=== PATIENT | female | born 1970 | race Two or more races ===

== ENCOUNTER → 2017-07-28 16:30 | Outpatient (CLI) | payer BC | END | disposition home or self-care (01) | LOC: D.MAMMO 14:45 | DX: Z12.31 Encounter for screening mammogram for malignant neoplasm of breast (principal) ==

== ENCOUNTER 2017-08-28 09:00 | Outpatient (CLI) | payer BC | END 2017-08-28 23:59 | disposition home or self-care (01) | LOC: D.MAMMO 09:00 | DX: R92.8 Other abnormal and inconclusive findings on diagnostic imaging of breast (principal) ==

== ENCOUNTER → 2018-01-08 09:09 | Outpatient (CLI) | payer BC, OTHER | END | disposition home or self-care (01) | LOC: D.LAB 09:09 | DX: R31.21 Asymptomatic microscopic hematuria (principal) ==

== ENCOUNTER 2019-04-13 12:02 | Day surgery (SDC) | payer BC, OTHER ==
[~2019-04-13] VITALS: Ht 167.6 cm; Wt 60.3 kg
--- NOTE | ~2019-04-13 | OP ---
PATIENT NAME: STEFANY CARDONA MA MEDICAL RECORD: [id number] :68 LOCATION:[facility] ADMISSION DATE: SURGEON: RANJEET AVELAR MD DATE OF OPERATION: 04/13/2019 PREOPERATIVE DIAGNOSES: 1. Dysfunctional bleeding. 2. Prolapsed fibroid uterus. POSTOPERATIVE DIAGNOSES: 1. Dysfunctional bleeding. 2. Prolapsed fibroid uterus. PROCEDURES: 1. Vaginal removal of prolapsed fibroid. 2. Hysteroscopy. 3. Dilation with curettage. SURGEON: Ranjeet Avelar MD ANESTHESIOLOGIST: Jose Flaherty MD ANESTHETIC: General. FINDINGS: Prolapsed fibroid on a broad pedicle was noted. At the time of hysteroscopy, lush endometrium was encountered. No other abnormal masses identified at the time of hysteroscopy. Briceño brown tissue returned after D&C. SPECIMENS REMOVED: 1. Prolapsed fibroid. 2. Endometrial curettings. SPECIMEN DISPOSITION: All specimens to pathology. ESTIMATED BLOOD LOSS: Less than or equal to 100 cc. FLUIDS: Lactated Ringer's 1200 cc. URINE OUTPUT: Quantity sufficient cath prior to the procedure. COMPLICATIONS: None. DRAINS: None. INDICATION: The patient is a 48-year-old female who has been seen in the clinic previously for heavy bleeding. The patient was noted to have a fibroid present at the os and was scheduled to follow up for preop. The patient called the clinic and reported heavy vaginal bleeding. She was assessed and taken to the operating room for removal of prolapsed fibroid and D&C. DESCRIPTION OF PROCEDURE: After informed consent was assured, the patient was taken to the operating room, where anesthetic was obtained. The patient was placed in stirrups and positioned for the procedure. After prepping and draping, speculum was introduced and fibroid was visualized. Fibroid was grasped with a tenaculum and placed on gentle traction. Clamps were applied at OPERATIVE REPORT [id number] STEFANY CARDONA MA the base and the pedicle was cut with scissors. A stitch was applied here for hemostasis. Hysteroscopy was now performed. The endometrium was with the above findings. The uterus was sounded to 11 cm. A curettage was now performed with grossly briceño brown tissue. A single-tooth tenaculum, which was applied to the cervix during the D&C, was removed and puncture site was bleeding. Ring forceps was applied here and removed prior to transport to PACU. Sponge, lap, and needle count was correct times 2. The patient was awakened and went to the recovery area in stable condition. TRANSINT:[id number] Voice Confirmation ID: [id number] DOCUMENT ID: [id number] RANJEET AVELAR MD CC: [id number] DICTATION DATE: 05/16/19 0955 PROSPECTING OBSERVER: 05/16/19 1602 [facility] 04/13/19 [place] [id number] [place] [id number]
[2019-04-13 12:39] LABS: BASOPHILS 0.1 % (0-2); EOSINOPHILS 0.6 % (0-7); HEMOGLOBIN 14.2 g/dL (12-16); IMMATURE GRANULOCYTES 0.6 % (0-5); LYMPHOCYTES 23.4 % (15-50); MCH 32.6 pg (26.0-34.0); MCHC 34.6 g/dL (31.0-37.0); MEAN PLATELET VOLUME 10.4 fL (7.4-10.4); MONOCYTES 5.1 % (2-11); NEUTROPHILS 70.2 % (40-80); PLATELET COUNT 219 10x3/uL (130-400); RBC 4.36 10x6/uL (4.00-5.40); RDW 13.1 % (11.5-14.5); WBC 9.9 10x3/uL (4.8-10.8)
[2019-04-13 13:08] VITALS: BP 98/64; Ht 167.6 cm; Wt 60.3 kg
[2019-04-13 13:20] LABS: HCG URINE NEGATIVE (NEGATIVE)
--- NOTE | 2019-04-13 17:05 | NUR ---
1700 FL DIET SERVED.
== END 2019-04-13 18:35 | disposition home or self-care (01) ==
LOC: D.PAN 12:02 → D.OPS 04-25 11:00 → D.PAN 04-25 11:00
PROVIDERS: ATTEND Obstetrics & Gynecology
DX: N93.8 Other specified abnormal uterine and vaginal bleeding (principal); D25.0 Submucous leiomyoma of uterus; Z01.812 Encounter for preprocedural laboratory examination

== ENCOUNTER 2019-05-16 18:05 | Emergency (ER) | payer BC, OTHER ==
[~2019-05-16] VITALS: Ht 167.6 cm; Wt 60.0 kg
[2019-05-16 18:10] VITALS: Ht 167.6 cm; Wt 60.0 kg
[2019-05-16] MEDS ORDERED: IBUPROFEN800 MG PO (18:12)
[2019-05-16 18:55] LABS: BASOPHILS 0.2 % (0-2); HEMOGLOBIN 14.1 g/dL (12-16); IMMATURE GRANULOCYTES 0.4 % (0-5); LYMPHOCYTES 30.4 % (15-50); MCH 32.2 pg (26.0-34.0); MCHC 35.3 g/dL (31.0-37.0); MCV 91.3 fL (80.0-100.0); MEAN PLATELET VOLUME 10.8 fL (7.4-10.4); MONOCYTES 7.5 % (2-11); NEUTROPHILS 60.5 % (40-80); PLATELET COUNT 186 10x3/uL (130-400); RBC 4.38 10x6/uL (4.00-5.40); RDW 12.8 % (11.5-14.5); WBC 9.2 10x3/uL (4.8-10.8)
[2019-05-16 19:00] LABS: APPEARANCE CLEAR (CLEAR); BILIRUBIN NEGATIVE (NEGATIVE); COLOR STRAW (YELLOW); GLUCOSE NEGATIVE (NEGATIVE); KETONE NEGATIVE (NEGATIVE); NITRITE NEGATIVE (NEGATIVE); PROTEIN NEGATIVE (NEGATIVE); SPECIFIC GRAVITY 1.015 (1.005-1.020); UROBILINOGEN NORMAL (NORMAL)
[2019-05-16 19:10] LABS: EPITHELIAL CELLS 0-5 /hpf (0-5); WHITE CELLS - URINE 0-5 /hpf (0-5)
[2019-05-16 19:23] LABS: ALBUMIN 3.9 g/dL (3.4-5.0); ALKALINE PHOSPHATASE 103 U/L (46-116); ALT (SGPT) 51 U/L (10-68); AMYLASE - SERUM 65 U/L (25-115); BILIRUBIN - TOTAL 0.86 mg/dL (0.2-1.3); CALC OSMOLALITY 274 mosm/kg (275-300); CALCIUM 8.6 mg/dL (8.5-10.1); CARBON DIOXIDE 25.7 mmol/L (21.0-32.0); CHLORIDE - SERUM 102 mmol/L (98-107); CREATININE - SERUM 0.7 mg/dL (0.6-1.3); GLUCOSE 109 mg/dL (74-106); LIPASE 176 U/L (73-393); POTASSIUM - SERUM 3.8 mmol/L (3.5-5.1); PROTEIN - SERUM 7.6 g/dL (6.4-8.2); SODIUM 137 mmol/L (136-145); UREA NITROGEN 12 mg/dL (7-18); eGFR NON AFRICAN AMERICAN > 90 mL/min (90-120)
[2019-05-16 22:03] VITALS: BP 114/63
[2019-05-16] MEDS ORDERED: VOLTAREN75 MG PO (22:50)
== END 2019-05-16 23:03 | disposition home or self-care (01) ==
LOC: D.ER 18:05
PROVIDERS: Family Medicine
DX: R31.9 Hematuria, unspecified (principal); R10.9 Unspecified abdominal pain